=== PATIENT | male | born 2000 | race Hispanic/Latino ===

== ENCOUNTER 2021-09-30 15:50 | Emergency (ER) | payer OTHER ==
[2021-09-30] MEDS ORDERED: HYDROCODONE/APAP 7.5/325 MG TAB ONE (16:18)
--- NOTE | 2021-09-30 17:16 | RAD REPORT ---
EXAM DESCRIPTION: RAD - Nasal Bones - 09/30/2021 4:34 pm CLINICAL HISTORY: Nasal pain FINDINGS: Comminuted fracture nasal bone. Several of the fragments are depressed.
[2021-09-30] MEDS ORDERED: DERMABOND SKIN ADHESIVE TOP ONE (17:20)
--- NOTE | 2021-09-30 17:25 | EDPHYS ---
Physician Documentation [facility] Name: Dharmesh Kraus Age: 21 yrs Sex: Male : 2000 Arrival Date: 09/30/2021 Time: 15:52 Bed 18 Private MD: ED Physician Farhad Calixto HPI: 09/30 16:10 This 21 yrs old Male presents to ER via Ambulatory with complaints of Facial cp Injury, Nose Bleed. 16:10 The patient or guardian reports injury. The complaints affect the nose. Context of cp injury: The problem was sustained at a sports field or court, at while playing soccer, resulted from a direct blow, another person's head. Onset: The symptoms/episode began/occurred just prior to arrival. 16:10 Associated signs and symptoms: Loss of consciousness: This patient did not experience cp any loss of consciousness. Pertinent negatives: headache, neck pain, seizure, vomiting. Historical: - Allergies: 15:58 No Known Allergies; ab2 - PMHx: 15:58 None; ab2 - PSHx: 15:58 None; ab2 - Immunization history:: Adult Immunizations up to date. - Social history:: Smoking status: Patient denies any tobacco usage or history of. ROS: 16:15 ENT: Positive for nose bleed, nasal deformity and swelling, Negative for drainage from cp ear(s), ear pain, sore throat, dental pain, difficulty swallowing, difficulty handling secretions. 16:15 Constitutional: Negative for body aches, chills, fever, poor PO intake. cp 16:15 Eyes: Negative for blurry vision, vision loss, visual disturbance. 16:15 Neck: Negative for pain with movement, pain at rest, stiffness. 16:15 Cardiovascular: Negative for chest pain, palpitations. 16:15 Respiratory: Negative for cough, shortness of breath, wheezing. 16:15 Abdomen/GI: Negative for abdominal pain, nausea, vomiting, and diarrhea. 16:15 Neuro: Negative for headache, loss of consciousness, syncope, weakness. 16:15 All other systems are negative. Exam: 16:20 Constitutional: The patient appears in no acute distress, alert, awake, non-toxic, well cp developed, well nourished, uncomfortable. 16:20 Head/face: Noted is swelling, that is moderate, of the nose, tenderness, that is cp moderate, of the nose, Sinus tenderness, is not appreciated. 16:20 Eyes: Periorbital structures: appear normal, Pupils: equal, round, and reactive to light and accomodation, Extraocular movements: intact throughout, Conjunctiva: normal, no exudate, no injection, Lids and lashes: appear normal, bilaterally. 16:20 ENT: External ear(s): are unremarkable, Ear canal(s): are normal, clear, TM's: dullness, bilaterally, Nose: External nose: contusion is noted, deformity is noted, laceration is present, swelling is noted, Nasal septum: deviates to the left, no septal hematoma appreciated, bleeding, is seen from the left nare, and is minimal, no septal hematoma is appreciated, Mouth: Lips: moist, Oral mucosa: pink and intact, moist, Posterior pharynx: Airway: no evidence of obstruction, patent, Dental exam: normal. 16:20 Neck: C-spine: vertebral tenderness, is not appreciated, crepitus, is not appreciated, ROM/movement: is normal, is supple, without pain, no range of motions limitations, no nuchal rigidity. 16:20 Chest/axilla: Inspection: normal, Palpation: is normal, no crepitus, no tenderness. 16:20 Cardiovascular: Rate: normal, Rhythm: regular. 16:20 Respiratory: the patient does not display signs of respiratory distress, Respirations: normal, no use of accessory muscles, no retractions, labored breathing, is not present, Breath sounds: are clear throughout, no decreased breath sounds, no stridor, no wheezing. 16:20 Abdomen/GI: Inspection: abdomen appears normal, Palpation: abdomen is soft and non-tender, in all quadrants. 16:20 Back: pain, is absent, ROM is normal. 16:20 Skin: injury, laceration(s), the wound is approximately 1.5 cm(s), of the bridge of nose, that can be described as no foreign body, linear, with mild bleeding, superficial. 16:20 Neuro: Orientation: to person, place \T\ time. Mentation: is normal, Cerebellar function: is grossly normal, Motor: moves all fours, strength is normal, Sensation: is normal, Gait: is steady, at a normal pace, without difficulty. Vital Signs: 15:56 BP 119 / 74; Pulse 90; Resp 17; Temp 97.9(TE); Pulse Ox 100% on R/A; Weight 83.91 kg; ab2 Height 5 ft. 7 in. (170.18 cm); Pain 6/10; 17:40 Pulse 88; Resp 17 S; Pulse Ox 100% on R/A; jd3 15:56 Body Mass Index 28.97 (83.91 kg, 170.18 cm) ab2 Orem Coma Score: 16:10 Eye Response: spontaneous(4). Verbal Response: oriented(5). Motor Response: obeys cp commands(6). Total: 15. 17:25 Eye Response: spontaneous(4). Verbal Response: oriented(5). Motor Response: obeys cp commands(6). Total: 15. MDM: 16:00 Patient medically screened. shahida 16:30 Differential diagnosis: Contusion of head, face, nose, mouth, Hematoma on Laceration of cp Intracranial bleed- Concussion cerebral contusion. 17:25 Data reviewed: vital signs, nurses notes, radiologic studies, CT scan. cp 17:25 Counseling: I had a detailed discussion with the patient and/or guardian regarding: the cp historical points, exam findings, and any diagnostic results supporting the discharge/admit diagnosis, radiology results, the need for outpatient follow up, for definitive care, an ENT specialist, to return to the emergency department if symptoms worsen or persist or if there are any questions or concerns that arise at home. Response to treatment: the patient's symptoms have markedly improved after treatment, and as a result, I will discharge patient. 09/30 16:05 Order name: XRAY Nasal Bones; Complete Time: 17:18 cp 09/30 17:18 Interpretation: Report reviewed. 09/30 17:16 Order name: Wound Care: please clean and irrigate wound; Complete Time: 17:40 cp 09/30 17:16 Order name: Dermabond; Complete Time: 17:40 cp Administered Medications: 16:17 Drug: Hydrocodone-Acetaminophen (7.5 mg-325 mg) 1 tabs Route: PO; 17:17 Follow up: Response: No adverse reaction; RASS: Alert and Calm (0) jd3 Disposition Summary: 09/30/21 17:25 Discharge Ordered Location: Home cp Problem: new cp Symptoms: have improved cp Condition: Stable cp Diagnosis - Fracture of nasal bones - comminuted(09/30/21 17:27) cp Followup: cp - With: Dorie Beltran MD - When: 2 - 3 days - Reason: nasal bone fracture Discharge Instructions: - Discharge Summary Sheet cp - Nasal Fracture cp Forms: - Medication Reconciliation Form cp - Thank You Letter cp - Antibiotic Education cp - Prescription Opioid Use cp Prescriptions: - Augmentin 875-125 mg Oral Tablet - take 1 tablet by ORAL route every 12 hours for 10 days; 20 tablet; Refills: 0, cp Product Selection Permitted - Tylenol-Codeine #3 300 mg-30 mg Oral - take 2 tablet by ORAL route every 8-10 hours; 20 tablet; Refills: 0, Product cp Selection Permitted Addendum: 10/03/2021 07:15 Co-signature as Attending Physician, Farhad Calixto MD I agree with the assessment and c titus plan of care. Signatures: Dispatcher [employer] EDKY Farhad Calixto MD MD cha Williams, Irene, RN RN Farhad Larios PA PA Sin Jordan Jonathon RN jd3 Corrections: (The following items were deleted from the chart) 09/30 17:27 17:25 Fracture of nasal bones cp cp
--- NOTE | 2021-09-30 17:25 | ER ---
Nurse's Notes [facility] Name: Dharmesh Kraus Age: 21 yrs Sex: Male : 2000 Arrival Date: 09/30/2021 Time: 15:52 Bed 18 Private MD: Diagnosis: Fracture of nasal bones-comminuted Presentation: 09/30 15:56 Chief complaint: Patient states: "I got headed in the nose at my soccer game. Me and ab2 another rogerio both jumped for the ball and he head butt me." Pt has laceration to bridge of nose and nose is bleeding a moderate amount on patient arrival. Coronavirus screen: Vaccine status: Patient reports being unvaccinated. Client denies travel out of the [place] in the last 14 days. At this time, the client does not indicate any symptoms associated with coronavirus-19. Ebola Screen: Patient negative for fever greater than or equal to 101.5 degrees Fahrenheit, and additional compatible Ebola Virus Disease symptoms Patient denies exposure to infectious person. Patient denies travel to an Ebola-affected area in the 21 days before illness onset. No symptoms or risks identified at this time. Initial Sepsis Screen: Does the patient meet any 2 criteria? No. Patient's initial sepsis screen is negative. Does the patient have a suspected source of infection? No. Patient's initial sepsis screen is negative. Risk Assessment: Do you want to hurt yourself or someone else? Patient reports no desire to harm self or others. Onset of symptoms is unknown. 15:56 Method Of Arrival: Ambulatory ab2 15:56 Acuity: RYAN 4 ab2 Triage Assessment: 15:58 General: Appears in no apparent distress. uncomfortable, Behavior is calm, cooperative, ab2 appropriate for age. Pain: Complains of pain in nose. 15:59 Derm: Wound noted nose. ab2 Historical: - Allergies: 15:58 No Known Allergies; ab2 - PMHx: 15:58 None; ab2 - PSHx: 15:58 None; ab2 - Immunization history:: Adult Immunizations up to date. - Social history:: Smoking status: Patient denies any tobacco usage or history of. Screenin:41 Abuse screen: Denies threats or abuse. Nutritional screening: No deficits noted. jd3 Tuberculosis screening: No symptoms or risk factors identified. Fall Risk Ambulatory Aid- None/Bed Rest/Nurse Assist (0 pts). Gait- Normal/Bed Rest/Wheelchair (0 pts) Mental Status- Oriented to own ability (0 pts). Total Rocha Fall Scale indicates No Risk (0-24 pts). Assessment: 16:35 General: Appears in no apparent distress. uncomfortable, Behavior is calm, cooperative, jd3 appropriate for age. Pain: Complains of pain in nose Quality of pain is described as sharp, tender. Neuro: Level of Consciousness is awake, alert, obeys commands, Oriented to person, place, time, situation. Cardiovascular: Capillary refill < 3 seconds Patient's skin is warm and dry. Respiratory: Airway is patent Respiratory effort is even, unlabored, Respiratory pattern is regular, symmetrical. GI: No signs and/or symptoms were reported involving the gastrointestinal system. : No signs and/or symptoms were reported regarding the genitourinary system. EENT: Nares with bleeding noted emesis bag given and tissues. bleeding stopped at this time. 16:35 Derm: Skin is intact, Skin is dry, Skin is normal, Skin temperature is warm. jd3 Musculoskeletal: Circulation, motion, and sensation intact. Range of motion: intact in all extremities. 17:39 Reassessment: Patient appears in no apparent distress at this time. No changes from jd3 previously documented assessment. Patient and/or family updated on plan of care and expected duration. Pain level reassessed. Patient is alert, oriented x 3, equal unlabored respirations, skin warm/dry/pink. Vital Signs: 15:56 BP 119 / 74; Pulse 90; Resp 17; Temp 97.9(TE); Pulse Ox 100% on R/A; Weight 83.91 kg; ab2 Height 5 ft. 7 in. (170.18 cm); Pain 6/10; 17:40 Pulse 88; Resp 17 S; Pulse Ox 100% on R/A; jd3 15:56 Body Mass Index 28.97 (83.91 kg, 170.18 cm) ab2 Ivon Coma Score: 16:10 Eye Response: spontaneous(4). Verbal Response: oriented(5). Motor Response: obeys cp commands(6). Total: 15. 17:25 Eye Response: spontaneous(4). Verbal Response: oriented(5). Motor Response: obeys cp commands(6). Total: 15. ED Course: 15:52 Patient arrived in ED. mr 15:58 Triage completed. ab2 15:58 Arm band placed on left wrist. ab2 16:00 Farhad Calixto MD is Attending Physician. shahida 16:03 Farhad Pascual PA is PHCP. cp 16:36 XRAY Nasal Bones In Process Unspecified. EDMS 16:39 Claudio Aguayo, RN is Primary Nurse. jd3 16:41 Patient has correct armband on for positive identification. Bed in low position. Call jd3 light in reach. Side rails up X 1. Adult w/ patient. Pulse ox on. NIBP on. 17:22 Wound care: to abrasion, located on nose was cleaned with soap and water, Patient jd3 tolerated well. 17:24 Dorie Beltran MD is Referral Physician. cp 17:39 No provider procedures requiring assistance completed. Patient did not have IV access jd3 during this emergency room visit. Administered Medications: 16:17 Drug: Hydrocodone-Acetaminophen (7.5 mg-325 mg) 1 tabs Route: PO; iw 17:17 Follow up: Response: No adverse reaction; RASS: Alert and Calm (0) jd3 Outcome: 17:25 Discharge ordered by MD. cp 17:39 Discharged to home ambulatory, with family. jd3 17:39 Condition: stable 17:39 Discharge instructions given to patient, family, Instructed on discharge instructions, follow up and referral plans. medication usage, Demonstrated understanding of instructions, follow-up care, medications, Prescriptions given X 2. 17:40 Patient left the ED. jd3 Signatures: Dispatcher [employer] EDMT Farhad Calixto MD MD cha Rivera, Mary Coral Wong RN RN iw Farhad Pascual PA PA cp Claudio Aguayo, RN RN jd3 Sin Jonas ab2 Corrections: (The following items were deleted from the chart) 15:59 15:56 Chief complaint: Patient states: "I got kicked in the head at a soccer game." Pt ab2 has laceration to bridge of nose and nose is bleeding a moderate amount on patient arrival ab2
[2021-09-30 17:49] VITALS: BP 119/74; TEMP 97.9; O2SAT 100
== END 2021-09-30 17:40 | disposition home or self-care (01) ==
LOC: ER 15:50
DX: S02.2XXA Fracture of nasal bones, initial encounter for closed fracture (principal); W21.89XA Striking against or struck by other sports equipment, initial encounter; Y93.66 Activity, soccer; Y92.322 Soccer field as the place of occurrence of the external cause; Y99.8 Other external cause status
CPT/HCPCS: 70160; 99284